=== PATIENT | male | born 1990 | race Caucasian/White ===

== ENCOUNTER 2018-03-16 23:10 | Emergency (ER) | payer SELFPAY, OTHER ==
[2018-03-17] MEDS: FLUORESCEIN STRIP RIGHT EYE (00:30)
[2018-03-17] MEDS: TETRACAINE 0.5% 4 ML OPH RIGHT EYE (02:13)
== END 2018-03-17 02:30 | disposition home or self-care (01) ==
LOC: FTE 23:10
DX: T15.11XA Foreign body in conjunctival sac, right eye, initial encounter (principal); X58.XXXA Exposure to other specified factors, initial encounter; Y92.9 Unspecified place or not applicable
CPT/HCPCS: 65220; 99283-25